=== PATIENT | female | born 1970 | race African-American/Black ===

== ENCOUNTER 2020-05-21 12:27 | Day surgery (SDC) | payer OTHER ==
[2020-05-16 17:09] VITALS: BMI 40.4
[2020-05-21] MEDS: hydrALAZINE HCL 20 MG/ML VIAL IVPUSH ONE ×2 (09:27→14:22)
[~2020-05-21 12:27] MED LIST: BUPIVACAINE LIPOSOME/PF (EXPAREL) 266 MG/20 ML VIAL ONE; CEFAZOLIN 2 GM in DEXTROSE 5%-WATER - 50 ML IVPB ONE; LACTATED RINGERS SOLUTION 1,000 ML IV SCH; METOPROLOL TARTRATE 5 MG/5 ML VIAL ONE; SODIUM CHLORIDE 0.9% P/F 10 ML VIAL IJ ONE; TRANEXAMIC ACID 1000 MG/10 ML VIAL IVPUSH ONE; VANCOMYCIN 1 GM in D5W (PRE-DOCKED) 1,000 MG/250 ML IVPB ONE
[2020-05-21] MEDS: ACETAMINOPHEN 500 MG TABLET (FP) PO PRN ×2 (12:30→17:50)
[2020-05-21] MEDS ORDERED: ACETAMINOPHEN 500 MG TABLET (FP) ONE (12:35)
[2020-05-22 11:14] VITALS: BP 156/85; PULSE 60; TEMP 98
== END 2020-05-22 12:13 | disposition home or self-care (01) ==
LOC: FASUSAT 12:27 → SUATTDRO 12:27 → FM/S 12:27 → UNDOADMIN 12:28 → FM/S 12:28 → FASUSAT 05-22 05:50 → FM/S 05-22 05:50 → UNDOADMIN 05-22 05:51 → FM/S 05-22 05:51 → FASUSAT 05-22 12:13
PROVIDERS: ATTEND Nurse Practitioner Acute Care
PROC: 0SRC0JZ Replacement of Right Knee Joint with Synthetic Substitute, Open Approach (ICD-10-PCS; principal; 2020-05-21 08:00)
DX: M17.11 Unilateral primary osteoarthritis, right knee (principal); I10 Essential (primary) hypertension; E66.01 Morbid (severe) obesity due to excess calories; Z53.8 Procedure and treatment not carried out for other reasons
CPT/HCPCS: 84703; 94760; 97116-GP; 97161-GP

== ENCOUNTER 2021-02-04 12:34 | Emergency (ER) | payer OTHER ==
[2021-02-04 12:42] VITALS: TEMP 98.9; BMI 42.0
[2021-02-04] MEDS ORDERED: ACETAMINOPHEN 325 MG TABLET (FP) PO ONE (12:56)
[2021-02-04] MEDS ORDERED: ACETAMINOPHEN 325 MG TABLET (FP) ONE (13:01)
[2021-02-04] MEDS ORDERED: ACETAMINOPHEN 1000 MG/100 ML VIAL IVPB ONE (13:08)
[2021-02-04] MEDS ORDERED: SODIUM CHLORIDE 0.9% 500 ML INFUS.BAG IV ONE (13:09)
[2021-02-04] MEDS ORDERED: PROCHLORPERAZINE INJECTION 10 MG/2 ML VIAL IVPB ONE (13:09)
[2021-02-04] MEDS ORDERED: ACETAMINOPHEN INJECTION 100 ML IVPB ONE (13:18)
[2021-02-04 14:23] VITALS: BP 136/77; PULSE 85
== END 2021-02-04 15:00 | disposition home or self-care (01) ==
LOC: FER 12:34
PROC: 3E0333Z Introduction of Anti-inflammatory into Peripheral Vein, Percutaneous Approach (ICD-10-PCS; principal; 2021-02-04)
PROC: 3E033GC Introduction of Other Therapeutic Substance into Peripheral Vein, Percutaneous Approach (ICD-10-PCS; 2021-02-04)
DX: R51.9 Headache, unspecified (principal); I10 Essential (primary) hypertension
CPT/HCPCS: 70450-TC; 99284-25; J0131

== ENCOUNTER 2021-02-18 13:24 | Inpatient (IN) | payer OTHER ==
[~2021-02-18 13:24] MED LIST changes: +BUPIVACAINE HCL 50 ML ONE; +BUPIVACAINE HCL/PF 0.5% (5MG/ML) 10 ML VIAL ONE; -CEFAZOLIN 2 GM in DEXTROSE 5%-WATER - 50 ML IVPB ONE; -LACTATED RINGERS SOLUTION 1,000 ML IV SCH; -METOPROLOL TARTRATE 5 MG/5 ML VIAL ONE; +MIDAZOLAM HCL 2 MG/2 ML SINGLE DOSE VIAL ONE; -TRANEXAMIC ACID 1000 MG/10 ML VIAL IVPUSH ONE; -VANCOMYCIN 1 GM in D5W (PRE-DOCKED) 1,000 MG/250 ML IVPB ONE
[2021-02-18] MEDS ORDERED: MIDAZOLAM HCL 2 MG/2 ML SINGLE DOSE VIAL ONE ×2 (13:25→13:50)
[2021-02-18] MEDS ORDERED: ceFAZolin SODIUM 1 GM VIAL ONE ×3 (13:50→21:20)
[2021-02-18] MEDS ORDERED: TRANEXAMIC ACID 1000 MG/10 ML VIAL ONE ×2 (13:50→16:04)
[2021-02-18] MEDS ORDERED: PROPOFOL 20 ML ONE ×2 (13:57)
[2021-02-18] MEDS ORDERED: METOPROLOL TARTRATE 5 MG/5 ML VIAL ONE (15:01)
[2021-02-18] MEDS ORDERED: SODIUM CHLORIDE 0.9% P/F 10 ML VIAL IJ ONE (16:29)
[2021-02-18] MEDS ORDERED: ALPRAZolam 2 MG TABLET PO PRN (17:02)
[2021-02-18] MEDS ORDERED: ZOLPIDEM TARTRATE 5 MG TABLET PO PRN (17:02)
[2021-02-18] MEDS ORDERED: MAG HYDROX/AL HYDROX/SIMETH 30 ML UNIT-DOSE CUP PO PRN (17:03)
[2021-02-18] MEDS ORDERED: MAGNESIUM HYDROX 2400MG/30ML ORAL SUSPENSION 30 ML CUP PO PRN (17:03)
[2021-02-18] MEDS ORDERED: ONDANSETRON 4 MG/2 ML VIAL IVPUSH PRN ×3 (17:03→17:31)
[2021-02-18] MEDS ORDERED: PROMETHAZINE HCL 25 MG/1 ML VIAL IVPUSH PRN ×2 (17:03→17:31)
[2021-02-18] MEDS: ACETAMINOPHEN 1000 MG/100 ML VIAL IVPB PRN (17:11)
[2021-02-18] MEDS ORDERED: ACETAMINOPHEN INJECTION 100 ML IVPB ONE (17:11)
[2021-02-18] MEDS ORDERED: LACTATED RINGERS SOLUTION 1,000 ML IV SCH ×3 (17:15→17:45)
[2021-02-18] MEDS ORDERED: HYDROmorphone HCL CARPU-JECT 2 MG/1 ML DISP.SYRIN IVPUSH SCH (17:15)
[2021-02-18] MEDS: HYDROmorphone HCL/PF 1 MG/ML VIAL ONE ×4 (17:18→17:45)
[2021-02-18] MEDS ORDERED: HYDROmorphone HCl 2 MG/ML VIAL IVPUSH ONE (17:32)
[2021-02-18] MEDS: morphine SULFATE 4 MG/ML VIAL IVPUSH PRN (18:49)
[2021-02-18] MEDS: KETOROLAC TROMETHAMINE 30 MG/1 ML VIAL IVPUSH PRN (21:03)
[2021-02-18] MEDS ORDERED: DEXTROSE 5%-WATER - 50 ML IVPB ONE (21:20)
[2021-02-18] MEDS: CELECOXIB 200 MG CAPSULE PO SCH (21:45)
[2021-02-18] MEDS: CEFAZOLIN 2 GM in DEXTROSE 5%-WATER - 50 ML IVPB SCH (21:45)
[2021-02-18] MEDS: ESCITALOPRAM OXALATE 10 MG TABLET PO SCH (21:46)
[2021-02-18] MEDS: traZODone HCL 100 MG TABLET (FP) PO SCH (21:46)
[2021-02-18] MEDS: ASPIRIN COATED 81 MG TABLET.EC PO SCH (21:46)
[2021-02-18] MEDS: SENNOSIDES/DOCUSATE COMBO (SENNA PLUS) TABLET (UD) PO SCH (21:47)
[2021-02-18] MEDS: HYDROmorphone HCl 2 MG/ML VIAL IVPB PRN (22:03)
[2021-02-18] MEDS: FLUTICASONE PROP 0.05% 16 GM NASAL SPRAY NS SCH (22:08)
[2021-02-19] MEDS ORDERED: DEXTROSE 5%-WATER - 50 ML IVPB ONE ×2 (04:15→09:36)
[2021-02-19] MEDS ORDERED: ceFAZolin SODIUM 1 GM VIAL ONE ×2 (04:15→09:36)
[2021-02-19] MEDS: CEFAZOLIN 2 GM in DEXTROSE 5%-WATER - 50 ML IVPB SCH ×2 (04:19→09:54)
[2021-02-19] MEDS: HYDROmorphone HCl 2 MG/ML VIAL IVPB PRN ×3 (04:30→17:48)
[2021-02-19] MEDS: KETOROLAC TROMETHAMINE 30 MG/1 ML VIAL IVPUSH PRN (07:58)
[2021-02-19] MEDS: ACETAMINOPHEN 1000 MG/100 ML VIAL IVPB PRN (07:59)
[2021-02-19 08:20] LABS: HEMATOCRIT 34.8 % (32.4-45.2); HEMOGLOBIN 11.1 GM/dl (10.7-15.3); MCH 27.4 pg (25.7-33.7); MCHC 31.9 g/dl (32.0-36.0); MEAN CELL VOLUME 85.9 fl (80-96); MEAN PLT VOLUME 8.2 fl (7.5-11.1); PLATELET COUNT 192 10^3/uL (134-434); RBC 4.06 M/mm3 (3.60-5.2); RDW 13.9 % (11.6-15.6); WHITE BLOOD COUNT 7.8 K/mm3 (4.0-10.8)
[2021-02-19 08:24] LABS: CALCIUM 7.8 mg/dl (8.5-10); CREATININE 0.6 mg/dl (0.55-1.3)
[2021-02-19] MEDS: CELECOXIB 200 MG CAPSULE PO SCH ×2 (09:54→21:36)
[2021-02-19] MEDS: SENNOSIDES/DOCUSATE COMBO (SENNA PLUS) TABLET (UD) PO SCH ×2 (09:54→21:36)
[2021-02-19] MEDS: amLODIPine BESYLATE 5 MG TABLET (FP) PO SCH (09:54)
[2021-02-19] MEDS: ASPIRIN COATED 81 MG TABLET.EC PO SCH ×2 (09:54→21:38)
[2021-02-19] MEDS: PANTOPRAZOLE 40 MG TABLET PO SCH (09:54)
[2021-02-19] MEDS: FLUTICASONE PROP 0.05% 16 GM NASAL SPRAY NS SCH ×2 (09:56→21:39)
[2021-02-19] MEDS ORDERED: PATIENT'S OWN MEDICATION (NON-FORMULARY) (Omeprazole Magnesium [Prilosec Otc] 20 MG Tablet PO SCH (10:00)
[2021-02-19] MEDS: ESCITALOPRAM OXALATE 10 MG TABLET PO SCH (21:37)
[2021-02-19] MEDS: traZODone HCL 100 MG TABLET (FP) PO SCH (21:37)
[2021-02-19] MEDS: morphine SULFATE 4 MG/ML VIAL IVPUSH PRN (21:37)
[2021-02-20] MEDS: KETOROLAC TROMETHAMINE 30 MG/1 ML VIAL IVPUSH PRN ×3 (04:47→18:47)
[2021-02-20 08:03] LABS: HEMATOCRIT 31.8 % (32.4-45.2); HEMOGLOBIN 10.1 GM/dl (10.7-15.3); MCH 26.7 pg (25.7-33.7); MCHC 31.7 g/dl (32.0-36.0); MEAN CELL VOLUME 84.2 fl (80-96); MEAN PLT VOLUME 8.3 fl (7.5-11.1); PLATELET COUNT 184 10^3/uL (134-434); RBC 3.78 M/mm3 (3.60-5.2); RDW 13.5 % (11.6-15.6); WHITE BLOOD COUNT 9.2 K/mm3 (4.0-10.8)
[2021-02-20] MEDS: ASPIRIN COATED 81 MG TABLET.EC PO SCH ×2 (09:50→21:08)
[2021-02-20] MEDS: PANTOPRAZOLE 40 MG TABLET PO SCH (09:50)
[2021-02-20] MEDS: CELECOXIB 200 MG CAPSULE PO SCH ×2 (09:50→21:08)
[2021-02-20] MEDS: SENNOSIDES/DOCUSATE COMBO (SENNA PLUS) TABLET (UD) PO SCH ×2 (09:51→22:58)
[2021-02-20] MEDS: amLODIPine BESYLATE 5 MG TABLET (FP) PO SCH (09:59)
[2021-02-20] MEDS: FLUTICASONE PROP 0.05% 16 GM NASAL SPRAY NS SCH ×2 (11:06→22:58)
[2021-02-20] MEDS: HYDROmorphone HCl 2 MG/ML VIAL IVPB PRN (14:07)
[2021-02-20 16:45] VITALS: BMI 42.0
[2021-02-20] MEDS: ESCITALOPRAM OXALATE 10 MG TABLET PO SCH (21:07)
[2021-02-20] MEDS: traZODone HCL 100 MG TABLET (FP) PO SCH (21:08)
[2021-02-21] MEDS: KETOROLAC TROMETHAMINE 30 MG/1 ML VIAL IVPUSH PRN ×3 (00:12→20:00)
[2021-02-21] MEDS: CELECOXIB 200 MG CAPSULE PO SCH ×2 (10:11→21:18)
[2021-02-21] MEDS: SENNOSIDES/DOCUSATE COMBO (SENNA PLUS) TABLET (UD) PO SCH ×2 (10:11→21:17)
[2021-02-21] MEDS: PANTOPRAZOLE 40 MG TABLET PO SCH (10:11)
[2021-02-21] MEDS: amLODIPine BESYLATE 5 MG TABLET (FP) PO SCH (10:11)
[2021-02-21] MEDS: ASPIRIN COATED 81 MG TABLET.EC PO SCH ×2 (10:11→21:18)
[2021-02-21] MEDS: FLUTICASONE PROP 0.05% 16 GM NASAL SPRAY NS SCH ×2 (10:12→21:22)
[2021-02-21] MEDS: HYDROmorphone HCl 2 MG/ML VIAL IVPB PRN (14:13)
[2021-02-21] MEDS: ESCITALOPRAM OXALATE 10 MG TABLET PO SCH (21:17)
[2021-02-21] MEDS: traZODone HCL 100 MG TABLET (FP) PO SCH (21:18)
[2021-02-22] MEDS: KETOROLAC TROMETHAMINE 30 MG/1 ML VIAL IVPUSH PRN (06:20)
[2021-02-22 10:18] LABS: BASO % 1.9 % (0-2.0); HEMATOCRIT 30.9 % (32.4-45.2); HEMOGLOBIN 10.3 GM/dl (10.7-15.3); LYMPH % 16.4 % (8-40); MCH 28.2 pg (25.7-33.7); MCHC 33.3 g/dl (32.0-36.0); MEAN CELL VOLUME 84.7 fl (80-96); MEAN PLT VOLUME 7.6 fl (7.5-11.1); MONO % 10.8 % (3.8-10.2); NEUT % 66.9 % (42.8-82.8); PLATELET COUNT 262 10^3/uL (134-434); RBC 3.65 M/mm3 (3.60-5.2); RDW 13.8 % (11.6-15.6); WHITE BLOOD COUNT 6.2 K/mm3 (4.0-10.8)
[2021-02-22 10:22] LABS: CREATININE 0.7 mg/dl (0.55-1.3)
[2021-02-22 10:33] VITALS: BP 141/83; PULSE 90; TEMP 98.9
[2021-02-22] MEDS: HYDROmorphone HCl 2 MG/ML VIAL IVPB PRN (10:48)
[2021-02-22] MEDS: PANTOPRAZOLE 40 MG TABLET PO SCH (10:49)
[2021-02-22] MEDS: ASPIRIN COATED 81 MG TABLET.EC PO SCH (10:49)
[2021-02-22] MEDS: CELECOXIB 200 MG CAPSULE PO SCH (10:49)
[2021-02-22] MEDS: amLODIPine BESYLATE 5 MG TABLET (FP) PO SCH (10:49)
[2021-02-22] MEDS: SENNOSIDES/DOCUSATE COMBO (SENNA PLUS) TABLET (UD) PO SCH (10:49)
[2021-02-22] MEDS: FLUTICASONE PROP 0.05% 16 GM NASAL SPRAY NS SCH (10:49)
== END 2021-02-22 13:59 | disposition home or self-care (01) | DRG 302 ==
LOC: FASUSAT 13:24 → FM/S 18:23 → FASUSAT 02-19 13:38 → FM/S 02-19 13:39
PROVIDERS: ADMIT Orthopaedic Surgery Orthopaedic Surgery of the Spine; ATTEND Nurse Practitioner Family
PROC: 0SRC0J9 Replacement of Right Knee Joint with Synthetic Substitute, Cemented, Open Approach (ICD-10-PCS; principal; 2021-02-18 14:19)
DX: M17.11 Unilateral primary osteoarthritis, right knee (principal); I10 Essential (primary) hypertension; F41.8 Other specified anxiety disorders
CPT/HCPCS: 36415; 73560-TC-RT-FY; 80048; 84703; 85025; 85027; 88305-TC; 88311-TC; 94010; 94760; 97116-GP; 97162-GP; J0131